=== PATIENT | male | born 1980 | race African-American/Black ===

== ENCOUNTER 2019-01-03 11:50 | Emergency (ER) | payer SELFPAY ==
[2019-01-03 12:04] VITALS: PULSE 104; TEMP 98.7; BMI 23.7
[2019-01-03] MEDS ORDERED: ALBUTEROL SO4 2.5/IPRATROPIUM 0.5 INH SOL 3 ML VIAL.NEB. NEB ONE ×2 (12:11→12:15)
[2019-01-03] MEDS ORDERED: methylPREDNISolone NA SUCC 125 MG/2 ML VIAL IVPUSH ONE (12:11)
--- NOTE | 2019-01-03 12:11 | PDOC ---
History of Present Illness - General Chief Complaint: Wheezing Stated Complaint: COUGHING/ FEVER/ CONGESTED Time Seen by Provider: 01/03/19 12:08 - History of Present Illness Initial Comments: 01/03/19 12:13 The patient is a 38 year old male with no significant PMH who presents for evaluation of difficulty breathing. The patient notes a 1 day history of worsening shortness of breath and difficulty breathing with associated productive cough prompting his presentation to the ED for further evaluation. The patient denies similar symptoms in the past and denies any history of asthma , copd, or smoking. The patient reports a subjective fever at home, but otherwise denies chills, headache, chest pain, nausea, vomiting, abdominal pain , recent long travel, leg swelling, or changes with urination or bowel movements. Past History - Past Medical History Allergies/Adverse Reactions: Allergies Allergy/AdvReac Type Severity Reaction Status Date / Time No Known Allergies Allergy Verified 01/03/19 12:04 Home Medications: Ambulatory Orders Albuterol Sulfate Inhaler - [Ventolin HFA Inhaler -] 1 - 2 inh PO Q4H PRN #1 inhaler 01/03/19 Azithromycin [Zithromax 250mg Tablets -] 250 mg PO UTDICT #6 tab 01/03/19 Prednisone [Prednisone 50 MG TABLETS] 50 mg PO DAILY #5 tablet 01/03/19 COPD: No GI Disorders: No Liver Disease: No - Surgical History Cholecystectomy: No Lung Surgery: No - Immunization History Immunization Up to Date: No - Suicide/Smoking/Psychosocial Hx Smoking History: Never smoked Have you smoked in the past 12 months: No Information on smoking cessation initiated: No Hx Alcohol Use: No Drug/Substance Use Hx: No Review of Systems - Review of Systems Comments:: 01/03/19 12:18 Constitutional: Subjective fevers. No chills, fatigue, malaise HEENT: No Rhinorrhea, nasal congestion, visual changes Cardiovascular: No chest pain, syncope, palpitations, lightheadedness Respiratory: Cough, SOB, No Hemoptysis, Gastrointestinal: No Abdominal pain, Nausea, Vomiting, Constipation, Diarrhea, Melena Genitourinary: No Dysuria, Frequency, Urgency, Hesitancy, Hematuria, Flank pain Musculoskeletal: No Myalgia, arthralgia Skin: No rashes, itching, bruising, pallor Neurologic: No Headache, Dizziness, Numbness, Weakness, or Tingling Psychiatric: No Hallucinations. No SI or HI *Physical Exam - Vital Signs Last Vital Signs Temp Pulse Resp BP Pulse Ox 98.7 F 104 H 16 146/83 90 L 01/03/19 12:01 01/03/19 12:01 01/03/19 12:01 01/03/19 12:01 01/03/19 12:01 - Physical Exam Comments: 01/03/19 12:20 General Appearance: Nourished. No Apparent Distress HEENT: No Pharyngeal Erythema, Tonsillar Exudate, Tonsillar Erythema Neck: No Cervical Lymphadenopathy Respiratory/Chest: Diffuse inspiratory and expiratory wheezing with poor air movement on exam. No Crackles, Rales, Rhonchi, Cardiovascular: Regular Rhythm, Regular Rate. No Murmur, Gallops, Rubs Gastrointestinal/Abdominal: Normal Bowel Sounds, Soft. No Guarding, Rebound, Tenderness Musculoskeletal: No CVA Tenderness Extremity: Normal Capillary Refill Integumentary: Normal Color, Dry, Warm Neurologic: Fully Oriented, Alert, Normal Mood/Affect, Normal Response, Heart Score/ECG Review #1 ECG reviewed & interpreted by me at: 14:02 General ECG Interpretation: Sinus Rhythm, Normal Intervals, No acute ischemic changes 01/03/19 14:02 Sinus tachycardia ED Treatment Course - LABORATORY CBC & Chemistry Diagram: 01/03/19 12:23 01/03/19 12:23 Medical Decision Making - Medical Decision Making 01/03/19 12:21 The patient is a 38 year old male with no significant PMH who presents for evaluation of difficulty breathing. Differential includes but is not limited to : Asthma, COPD, ACS, Pneumonia, Infectious, Metabolic Derangement. Given the patient's history and physical exam, we will obtain a cbc, cmp, troponin, ekg, chest plain film to evaluate further. We will treat in the meantime with solumedrol and duonebs. We will continue to monitor and reassess while here in the ED. 01/03/19 14:52 CBC demonstrates a mild elevated wbc to 13. CMP, troponin are unremarkable. D- dimer is negative. Chest plain film is unremarkable as read by our radiologist. The patient was reassessed and reports significant improvement in their symptoms. The patient's wheezing and O2 saturation have significantly improved and the patient appears clinically well. We are comfortable discharging the patient home in stable condition on prednisone, azithromycin, and with an albuterol inhaler. Patient and family made aware of impression and plan, return precautions discussed including but not limited to worsening pain or symptoms, fevers, or signs of infection, chest pain, respiratory distress, inability to tolerate oral intake, dehydration, syncope, or neurologic changes. The patient is to follow up with PMD as recommended within 1 week, follow up information provided and the patient will call for an appointment. The patient is to take medications as instructed for duration of time and continue with supportive care, avoid triggers and precipitants. Patient is safe for outpatient follow-up. *DC/Admit/Observation/Transfer Diagnosis at time of Disposition: Reactive airway disease Qualifiers: Asthma severity: unspecified severity Asthma persistence: unspecified Asthma complication type: uncomplicated Qualified Code(s): J45.909 - Unspecified asthma , uncomplicated - Discharge Dispostion Disposition: HOME Condition at time of disposition: Stable Decision to Admit order: No - Prescriptions Prescriptions: Albuterol Sulfate Inhaler - [Ventolin HFA Inhaler -] 1 - 2 inh PO Q4H PRN #1 inhaler PRN Reason: Wheezing Azithromycin [Zithromax 250mg Tablets -] 250 mg PO UTDICT #6 tab Prednisone [Prednisone 50 MG TABLETS] 50 mg PO DAILY #5 tablet - Referrals Referrals: Nicolas Moore MD [Staff Physician] - - Patient Instructions Printed Discharge Instructions: DI for Reactive Airway Disease-Adult Additional Instructions: 1) Please follow-up with your primary care doctor in the next 2-3 days. Please call tomorrow to schedule a follow up appointment. If you cannot follow up with your doctor within 1 week please return to the Emergency Department for any urgent issues. 2) Your laboratory / imaging results were normal here in the ER. 3) If you have any worsening of symptoms or any other concerns please return to the ER immediately. Return if worsening symptoms including fevers, headache, vomiting, visual or hearing disturbances, abdominal pain, chest pain, shortness of breath, syncope, dehydration, inability to take things by mouth/vomiting, altered mental status, or worsening concerning symptoms. 4) Please continue taking your home medications as directed. Your medications on discharge include Prednisone, Albuterol Inhaler, Azithromycin. Side effects may include upset stomach, abdominal pain, vomiting, or diarrhea. - Post Discharge Activity
[2019-01-03] MEDS ORDERED: methylPREDNISolone NA SUCC 125 MG/2 ML VIAL ONE (12:15)
[2019-01-03 12:38] LABS: BASO % 0.3 % (0-2.0); EOS % 1.4 % (0-4.5); HEMATOCRIT 47.7 % (35.4-49); HEMOGLOBIN 16.2 GM/dL (11.7-16.9); MCH 29.2 pg (25.7-33.7); MEAN CELL VOLUME 85.9 fl (80-96); MEAN PLT VOLUME 7.3 fl (7.5-11.1); MONO % 7.2 % (3.8-10.2); NEUT % 81.1 % (42.8-82.8); PLATELET COUNT 231 K/MM3 (134-434); RBC 5.55 M/mm3 (4.00-5.60); RDW 13.3 % (11.9-15.9); WHITE BLOOD COUNT 13.9 K/mm3 (4.0-10.0)
[2019-01-03 13:04] LABS: ALBUMIN 4.5 g/dl (3.4-5.0); ALK PHOS 59 U/L (45-117); ANION GAP 10 MMOL/L (8-16); BILIRUBIN,TOTAL 0.7 mg/dL (0.2-1); BLOOD UREA NITROGEN 16 mg/dL (7-18); CALCIUM 8.9 mg/dL (8.5-10.1); CHLORIDE 107 mmol/L (98-107); CO2 25 mmol/L (21-32); CREATININE 1.1 mg/dL (0.55-1.3); GLUCOSE,RANDOM 67 mg/dL (74-106); POTASSIUM 3.9 mmol/L (3.5-5.1); SGOT/AST 18 U/L (15-37); SGPT/ALT 30 U/L (13-61); SODIUM 142 mmol/L (136-145); TOT PROT 7.5 g/dl (6.4-8.2)
[2019-01-03] MEDS ORDERED: ALBUTEROL SO4 0.083% IH SOL 2.5 MG/3 ML VIAL.NEB. NEB ONE ×2 (13:07→13:29)
[2019-01-03 14:31] VITALS: BP 131/71
--- NOTE | 2019-01-03 19:19 | PDOC ---
Documentation entered by Guera Monroe SCRIBE, acting as scribe for Cynthia Lane MD. Cynthia Lane MD: This documentation has been prepared by the Fer horton Nirvannie, SCRIBE, under my direction and personally reviewed by me in its entirety. I confirm that the documentation accurately reflects all work, treatment, procedures, and medical decision making performed by me. Attending Attestation - Resident Resident Name: Juni Holden - ED Attending Attestation I have performed the following: I have examined & evaluated the patient, The case was reviewed & discussed with the resident, I agree w/resident's findings & plan - HPI HPI: 01/03/19 13:35 The patient is a 38 year old male, with no significant past medical history, who presents to the emergency department with, 1 day of worsening shortness of breath with associated productive cough with associated subjective fever. He denies any recent palpitations or shortness of breath. He denies any recent headache or dizziness. He denies any recent nausea, vomit, diarrhea or constipation. He denies any recent dysuria, frequency, urgency or hematuria. Allergies: NKDA - Physicial Exam PE: 01/03/19 12:28 GENERAL: The patient is in no acute distress. ENT: Ears normal, nares patent, oropharynx clear without exudates. Moist mucous membranes. No tonsillar enlargement, no exudates NECK: Normal range of motion, supple, no nuchal rigidity (+) LAD LUNGS: Breath sounds equal, clear to auscultation bilaterally. No wheezes, and no crackles. HEART:Regular rate and rhythm, normal S1 and S2 without murmur, rub or gallop. ABDOMEN: Soft, nontender, normoactive bowel sounds. EXTREMITIES: Normal range of motion, no edema. NEUROLOGICAL: Cranial nerves II through XII grossly intact. Normal speech. No focal neurological deficits. SKIN: Warm, Dry, normal turgor, no rashes or lesions noted. - Medical Decision Making 01/03/19 13:47 Laboratory Tests 01/03/19 01/03/19 12:23 12:23 WBC 13.9 H Hgb 16.2 Hct 47.7 Plt Count 231 BUN 16 Creatinine 1.1 Creatine Kinase 255 Creatine Kinase Index 0.3 CK-MB (CK-2) < 1.0 Troponin I < 0.02 CXR - nml Will Re Assess EKG - ST rate of 102 bpm, Sullivan nml, intervals nml, no pathological q waves 01/03/19 13:58 Will do D dimer Laboratory Tests 01/03/19 14:00 D-Dimer < 215 Shortness of breath has improved Will d/c on steroids, albuterol, azithromycin Clinical impression: Reactive airway disease, initial presentation
--- NOTE | 2019-01-04 12:29 | EKG ---
Test Reason : Blood Pressure : / mmHG Vent. Rate : 102 BPM Atrial Rate : 102 BPM P-R Int : 136 ms QRS Dur : 092 ms QT Int : 338 ms P-R-T Axes : 083 -22 062 degrees QTc Int : 440 ms SINUS TACHYCARDIA RIGHT ATRIAL ENLARGEMENT NO PREVIOUS ECGS AVAILABLE Confirmed by GREG BHAGAT MD ([id number]) on 01/04/2019 12:29:15 PM Referred By: Confirmed By:GREG BHAGAT MD
== END 2019-01-03 15:10 | disposition home or self-care (01) ==
LOC: JER 11:50
PROC: 3E0F7GC Introduction of Other Therapeutic Substance into Respiratory Tract, Via Natural or Artificial Opening (ICD-10-PCS; principal; 2019-01-03)
PROC: 3E0F7GC Introduction of Other Therapeutic Substance into Respiratory Tract, Via Natural or Artificial Opening (ICD-10-PCS; 2019-01-03)
PROC: 3E0333Z Introduction of Anti-inflammatory into Peripheral Vein, Percutaneous Approach (ICD-10-PCS; 2019-01-03)
DX: J45.909 Unspecified asthma, uncomplicated (principal)
CPT/HCPCS: 36415; 71045-TC-FY; 80053; 82550; 82553; 82962; 84484; 85025; 85379; 93005; 93010; 99283-25

== ENCOUNTER 2019-01-04 10:49 | Inpatient (IN) | payer OTHER | END 2019-01-08 12:58 | disposition home or self-care (01) | LOC: JER 10:49 → JERBED 17:52 → J6S 18:54 ==